=== PATIENT | female | born 1970 | race Caucasian/White ===

== ENCOUNTER 2019-06-12 16:03 | Inpatient (IN) | payer BC, OTHER ==
[2019-06-12] MEDS ORDERED: Flumazenil 0.1 MG/ML 5 ML MDV IVPUSH ONE ×2 (16:36→16:47)
--- NOTE | 2019-06-12 16:36 | EDM.PDOCBH ---
ED HPI GENERAL MEDICAL PROBLEM - General Chief Complaint: Behavioral/Psych Stated Complaint: [facility] Time Seen by Provider: 06/12/19 16:29 - History of Present Illness INITIAL COMMENTS - FREE TEXT/NARRATIVE: 48-year-old female brought in by EMS with decreased level of consciousness. The patient was over a [place], and getting ready for a video conference with the provider and became less responsive the staff over there held her up in the chair until EMS arrived. Upon arriving here she was arousable to the point of saying that she takes Effexor and Xanax. However she required sternal rubbing to get this. We were unable to verify her medications from [place] or find out what pharmacy she gets them from. Treatments ART CLASS MODEL: Reports: Other Medication(s) Other Treatments ART CLASS MODEL: narcan - Related Data Allergies Allergy/AdvReac Type Severity Reaction Status Date / Time fluoxetine HCl [From Prozac] Allergy Agitation Verified 08/20/13 04:59 GAS STATION CLERK meperidine HCl [From Demerol] Allergy Airway Verified 09/02/13 01:56 G[employer] STATION CLERK Tightness Penicillins Allergy Hives Verified 08/20/13 04:58 GAS STATION CLERK varenicline tartrate Allergy Agitation Verified 08/20/13 04:59 GAS STATION CLERK [From Chantix] Home Meds: Home Meds Furosemide 20 mg PO DAILY PRN 08/20/13 [History] Lactulose 20 gm PO TID 08/20/13 [History] Metoclopramide [Reglan] 5 mg PO DAILY 08/20/13 [History] Polyethylene Glycol 3350 [MiraLAX] 17 gm PO DAILY 08/20/13 [History] Acetaminophen/HYDROcodone [HYDROcodone-Acetaminophen 5-500] 5 - 325 mg PO Q6H PRN 09/02/13 [History] Diclofenac Sodium [Voltaren] 75 mg PO BIDM 09/02/13 [History] Misoprostol [Cytotec] 200 mcg PO BID 09/02/13 [History] Omeprazole 20 mg PO BIDAC 09/02/13 [History] Simethicone 160 mg PO TID 09/02/13 [History] Benzocaine/Menthol [Cepacol Sore Throat Lozenge] 1 each PO Q4HR PRN #30 lozenge 09/05/13 [Rx] diphenhydrAMINE [Benadryl] 50 mg PO TID PRN #30 cap 09/05/13 [Rx] fentaNYL [Duragesic] 12.5 mg TD Q72H 09/05/13 [History] guaiFENesin/Dextromethorphan [Mucinex Dm ER 600-30 mg Tablet] 1 each PO BID #14 tab.er.12h 09/05/13 [Rx] predniSONE [Prednisone] 20 mg PO DAILY #2 tablet 09/05/13 [Rx] Past Medical History - Past Health History Medical/Surgical History: Denies Medical/Surgical History Psychiatric History: Reports: Anxiety, Depression Social & Family History - Family History Family Medical History: Unobtainable - Tobacco Use Smoking Status *Q: Unknown Ever Smoked Second Hand Smoke Exposure: No - Living Situation & Occupation Occupation: Employed ED ROS GENERAL - Review of Systems Review Of Systems: See Below Reason Not Obtained: [place] sedated ED EXAM, BEHAVIORAL HEALTH - Physical Exam Exam: See Below Exam Limited By: Other (Decreased level of consciousness however she is maintaining her airway maintaining good saturation on room air her vitals look good her blood pressures a little low but she is not tachycardic) Ears: Normal External Exam, Normal Canal, Hearing Grossly Normal, Normal TMs Nose: Normal Inspection, Normal Mucosa, No Blood Throat/Mouth: Normal Inspection, Normal Lips, Normal Gums, Normal Oropharynx, Normal Voice, No Airway Compromise Head: Atraumatic, Normocephalic Neck: Normal Inspection, Supple. No: Lymphadenopathy (L), Lymphadenopathy (R) Respiratory/Chest: No Respiratory Distress, Lungs Clear, Normal Breath Sounds Cardiovascular: Regular Rate, Rhythm, No Edema, No Murmur GI/Abdominal: Normal Bowel Sounds, Soft Back Exam: Normal Inspection Extremities: Normal Inspection, No Pedal Edema Neurological: Other (she is minimally responsive) COURSE, BEHAVIORAL HEALTH COMP - Course Vital Signs: Last Vital Signs Temp 36.6 C 06/12/19 16:10 Pulse 71 06/12/19 16:10 Resp 12 06/12/19 16:10 BP 86/59 L 06/12/19 16:10 Pulse Ox 94 L 06/12/19 16:10 Orders, Labs, Meds: Active Orders 24 hr Category Date Time Status Sodium Chloride 0.9% [Normal Saline] 1,000 ml Med 06/12/19 16:45 Active IV ASDIRECTED Sodium Chloride 0.9% [Normal Saline] 1,000 ml Med 06/12/19 18:15 Active IV ASDIRECTED Medication Orders Sodium Chloride (Normal Saline) 1,000 mls @ 999 mls/hr IV ASDIRECTED JULIAN Last Admin: 06/12/19 16:45 Dose: 999 mls/hr Sodium Chloride (Normal Saline) 1,000 mls @ 999 mls/hr IV ASDIRECTED JULIAN Last Admin: 06/12/19 18:08 Dose: 999 mls/hr Laboratory Tests 06/12/19 06/12/19 06/12/19 Range/Units 16:50 16:50 16:50 WBC (3.98-10.04) K/mm3 RBC (3.98-5.22) M/mm3 Hgb (11.2-15.7) gm/dl Hct (34.1-44.9) % MCV (79.4-94.8) fl MCH (25.6-32.2) pg MCHC (32.2-35.5) g/dl RDW Std Deviation (36.4-46.3) fL Plt Count (182-369) K/mm3 MPV (9.4-12.3) fl Neutrophils % (Manual) (40-60) % Band Neutrophils % (0-10) % Lymphocytes % (Manual) (20-40) % Atypical Lymphs % % Monocytes % (Manual) (2-10) % Eosinophils % (Manual) (0.7-5.8) % Basophils % (Manual) (0.1-1.2) Platelet Estimate RBC Morph Comment Sodium (136-145) mEq/L Potassium (3.5-5.1) mEq/L Chloride (98-107) mEq/L Carbon Dioxide (21-32) mEq/L Anion Gap (5-15) BUN (7-18) mg/dL Creatinine (0.55-1.02) mg/dL Est Cr Clr Drug Dosing mL/min Estimated GFR (MDRD) (>60) mL/min BUN/Creatinine Ratio (14-18) Glucose (74-106) mg/dL Calcium (8.5-10.1) mg/dL Total Bilirubin (0.2-1.0) mg/dL AST (15-37) U/L ALT (14-59) U/L Alkaline Phosphatase (46-116) U/L Ammonia (11-32) umol/L Total Protein (6.4-8.2) g/dl Albumin (3.4-5.0) g/dl Globulin gm/dL Albumin/Globulin Ratio (1-2) TSH 3rd Generation (0.358-3.74) uIU/mL Urine Color Yellow (Yellow) Urine Appearance Clear (Clear) Urine pH 6.0 (5.0-8.0) Ur Specific [place] > or = 1.030 (1.005-1.030) Urine Protein Negative (Negative) Urine Glucose (UA) Negative (Negative) Urine Ketones Negative (Negative) Urine Occult Blood Negative (Negative) Urine Nitrite Negative (Negative) Urine Bilirubin 1+ H (Negative) Urine Urobilinogen 2.0 H (0.2-1.0) Ur Leukocyte Esterase Negative (Negative) Urine RBC 0-5 (0-5) /hpf Urine WBC 0-5 (0-5) /hpf Ur Squamous Epith Cells 5-10 H (0-5) /hpf Urine Bacteria Few (FEW) /hpf Urine Mucus Few (FEW) /hpf Urine HCG, Qual Negative (NEGATIVE) Salicylates (2.8-20) mg/dL Urine Opiates Screen Negative (VZUCXR=035) Ur Buprenorphine Scrn Negative (CUTOFF=10) Ur Oxycodone Screen Negative (CLE2MG=078) Urine Methadone Screen Negative (XNSILY=219) Ur Propoxyphene Screen Negative (KIQUBS=379) Acetaminophen (10-30) ug/mL Ur Barbiturates Screen Negative (KIVCQE=123) Ur Tricyclics Screen Negative (SMTXCW=416) Ur Phencyclidine Scrn Negative (CUTOFF=25) Ur Amphetamine Screen Negative (CQGLAN=280) U Methamphetamines Scrn Negative (VGXXVG=234) U Benzodiazepines Scrn Presumptive positive H (GKZVXS=105) U Cocaine Metab Screen Negative (BIKXGT=785) U Marijuana (THC) Screen Negative (CUTOFF=50) Ethyl Alcohol (0.00) gm% 06/12/19 06/12/19 06/12/19 Range/Units 18:08 18:08 18:08 WBC 5.17 (3.98-10.04) K/mm3 RBC 3.86 L (3.98-5.22) M/mm3 Hgb 11.4 (11.2-15.7) gm/dl Hct 34.1 (34.1-44.9) % MCV 88.3 (79.4-94.8) fl MCH 29.5 (25.6-32.2) pg MCHC 33.4 (32.2-35.5) g/dl RDW Std Deviation 40.4 (36.4-46.3) fL Plt Count 256 (182-369) K/mm3 MPV 10.1 (9.4-12.3) fl Neutrophils % (Manual) 60 (40-60) % Band Neutrophils % 0 (0-10) % Lymphocytes % (Manual) 35 (20-40) % Atypical Lymphs % 0 % Monocytes % (Manual) 3 (2-10) % Eosinophils % (Manual) 1 (0.7-5.8) % Basophils % (Manual) 1 (0.1-1.2) Platelet Estimate Adequate RBC Morph Comment Normal Sodium 141 (136-145) mEq/L Potassium 3.9 (3.5-5.1) mEq/L Chloride 110 H (98-107) mEq/L Carbon Dioxide 23 (21-32) mEq/L Anion Gap 11.9 (5-15) BUN 8 (7-18) mg/dL Creatinine 0.8 (0.55-1.02) mg/dL Est Cr Clr Drug Dosing 83.63 mL/min Estimated GFR (MDRD) > 60 (>60) mL/min BUN/Creatinine Ratio 10.0 L (14-18) Glucose 93 (74-106) mg/dL Calcium 7.9 L (8.5-10.1) mg/dL Total Bilirubin 0.3 (0.2-1.0) mg/dL AST 9 L (15-37) U/L ALT 14 (14-59) U/L Alkaline Phosphatase 59 (46-116) U/L Ammonia 17 (11-32) umol/L Total Protein 5.8 L (6.4-8.2) g/dl Albumin 3.0 L (3.4-5.0) g/dl Globulin 2.8 gm/dL Albumin/Globulin Ratio 1.1 (1-2) TSH 3rd Generation (0.358-3.74) uIU/mL Urine Color (Yellow) Urine Appearance (Clear) Urine pH (5.0-8.0) Ur Specific [place] (1.005-1.030) Urine Protein (Negative) Urine Glucose (UA) (Negative) Urine Ketones (Negative) Urine Occult Blood (Negative) Urine Nitrite (Negative) Urine Bilirubin (Negative) Urine Urobilinogen (0.2-1.0) Ur Leukocyte Esterase (Negative) Urine RBC (0-5) /hpf Urine WBC (0-5) /hpf Ur Squamous Epith Cells (0-5) /hpf Urine Bacteria (FEW) /hpf Urine Mucus (FEW) /hpf Urine HCG, Qual (NEGATIVE) Salicylates (2.8-20) mg/dL Urine Opiates Screen (KGCZUO=867) Ur Buprenorphine Scrn (CUTOFF=10) Ur Oxycodone Screen (QMR4TT=432) Urine Methadone Screen (QSLYUL=883) Ur Propoxyphene Screen (MXQRCB=344) Acetaminophen (10-30) ug/mL Ur Barbiturates Screen (WZMTTG=752) Ur Tricyclics Screen (YBYGAG=025) Ur Phencyclidine Scrn (CUTOFF=25) Ur Amphetamine Screen (YHKHTI=148) U Methamphetamines Scrn (WWBZLS=710) U Benzodiazepines Scrn (MVAXTY=695) U Cocaine Metab Screen (UQCMCD=194) U Marijuana (THC) Screen (CUTOFF=50) Ethyl Alcohol 0.00 (0.00) gm% 06/12/19 06/12/19 06/12/19 Range/Units 18:08 18:08 18:08 WBC (3.98-10.04) K/mm3 RBC (3.98-5.22) M/mm3 Hgb (11.2-15.7) gm/dl Hct (34.1-44.9) % MCV (79.4-94.8) fl MCH (25.6-32.2) pg MCHC (32.2-35.5) g/dl RDW Std Deviation (36.4-46.3) fL Plt Count (182-369) K/mm3 MPV (9.4-12.3) fl Neutrophils % (Manual) (40-60) % Band Neutrophils % (0-10) % Lymphocytes % (Manual) (20-40) % Atypical Lymphs % % Monocytes % (Manual) (2-10) % Eosinophils % (Manual) (0.7-5.8) % Basophils % (Manual) (0.1-1.2) Platelet Estimate RBC Morph Comment Sodium (136-145) mEq/L Potassium (3.5-5.1) mEq/L Chloride (98-107) mEq/L Carbon Dioxide (21-32) mEq/L Anion Gap (5-15) BUN (7-18) mg/dL Creatinine (0.55-1.02) mg/dL Est Cr Clr Drug Dosing mL/min Estimated GFR (MDRD) (>60) mL/min BUN/Creatinine Ratio (14-18) Glucose (74-106) mg/dL Calcium (8.5-10.1) mg/dL Total Bilirubin (0.2-1.0) mg/dL AST (15-37) U/L ALT (14-59) U/L Alkaline Phosphatase (46-116) U/L Ammonia (11-32) umol/L Total Protein (6.4-8.2) g/dl Albumin (3.4-5.0) g/dl Globulin gm/dL Albumin/Globulin Ratio (1-2) TSH 3rd Generation 1.032 (0.358-3.74) uIU/mL Urine Color (Yellow) Urine Appearance (Clear) Urine pH (5.0-8.0) Ur Specific [place] (1.005-1.030) Urine Protein (Negative) Urine Glucose (UA) (Negative) Urine Ketones (Negative) Urine Occult Blood (Negative) Urine Nitrite (Negative) Urine Bilirubin (Negative) Urine Urobilinogen (0.2-1.0) Ur Leukocyte Esterase (Negative) Urine RBC (0-5) /hpf Urine WBC (0-5) /hpf Ur Squamous Epith Cells (0-5) /hpf Urine Bacteria (FEW) /hpf Urine Mucus (FEW) /hpf Urine HCG, Qual (NEGATIVE) Salicylates 7.4 (2.8-20) mg/dL Urine Opiates Screen (VIUUHL=795) Ur Buprenorphine Scrn (CUTOFF=10) Ur Oxycodone Screen (WKQ3QS=379) Urine Methadone Screen (VQJCXW=405) Ur Propoxyphene Screen (YVCYNB=779) Acetaminophen 0 L (10-30) ug/mL Ur Barbiturates Screen (DYXWYN=519) Ur Tricyclics Screen (YWISOT=141) Ur Phencyclidine Scrn (CUTOFF=25) Ur Amphetamine Screen (LUJTWM=122) U Methamphetamines Scrn (TVZRXW=577) U Benzodiazepines Scrn (IWHXNU=023) U Cocaine Metab Screen (VUYKLD=162) U Marijuana (THC) Screen (CUTOFF=50) Ethyl Alcohol (0.00) gm% Medications Generic Name Dose Route Start Last Admin Trade Name Freq PRN Reason Stop Dose Admin Sodium Chloride 1,000 mls @ 999 mls/hr 06/12/19 16:45 06/12/19 16:45 Normal Saline IV 999 mls/hr ASDIRECTED JULIAN Administration Sodium Chloride 1,000 mls @ 999 mls/hr 06/12/19 18:15 06/12/19 18:08 Normal Saline IV 999 mls/hr ASDIRECTED JULIAN Administration Discontinued Medications Generic Name Dose Route Start Last Admin Trade Name Freq PRN Reason Stop Dose Admin Flumazenil 0.2 mg 06/12/19 16:36 06/12/19 16:44 Romazicon IVPUSH 06/12/19 16:37 0.2 mg ONETIME ONE Administration Flumazenil 0.3 mg 06/12/19 16:47 Romazicon IVPUSH 06/12/19 16:48 ONETIME ONE Re-Assessment/Re-Exam: Labs obtained head CT obtained drug screen positive for benzodiazepines. Head CT unremarkable remaining labs unremarkable. Case was discussed with poison control who figured the benzodiazepines had a short half-life to 3 hours but were more concerned about the Effexor if she took a large dose of this they recommended watching overnight seizure precautions. She's been monitored here in the emergency department with end-tidal CO2 and has done fairly well she is still sedated but responds to loud voices and rubbing.. Case discussed with Dr. Albert who will admit the patient. Departure - Departure Time of Disposition: 20:42 Disposition: Refer to Observation Clinical Impression: Drug overdose - Discharge Information Referrals: PCP,Unknown [Primary Care Provider] - Forms: ED Department Discharge Sepsis Event Note - Evaluation Sepsis Screening Result: No Definite Risk - Focused Exam Vital Signs: Vital Signs Temp Pulse Resp BP Pulse Ox 06/12/19 16:10 36.6 C 71 12 86/59 L 94 L Date Exam was Performed: 06/12/19 Time Exam was Performed: 20:40 - My Orders Last 24 Hours: My Active Orders 06/12/19 16:45 Sodium Chloride 0.9% [Normal Saline] 1,000 ml IV ASDIRECTED 06/12/19 18:15 Sodium Chloride 0.9% [Normal Saline] 1,000 ml IV ASDIRECTED - Assessment/Plan Last 24 Hours: My Active Orders 06/12/19 16:45 Sodium Chloride 0.9% [Normal Saline] 1,000 ml IV ASDIRECTED 06/12/19 18:15 Sodium Chloride 0.9% [Normal Saline] 1,000 ml IV ASDIRECTED
[2019-06-12] MEDS ORDERED: Sodium Chloride 0.9% 1,000 ML IV SCH ×2 (16:45→18:15)
--- NOTE | 2019-06-12 19:01 | CT ---
Head CT Technique: Multiple axial sections through the brain were obtained. Intravenous contrast was not utilized. Comparison: No previous intracranial imaging is available. Findings: Ventricles along with basal cisterns and sulci over the convexities appear within normal limits for the patient's age. No abnormal parenchymal densities are seen. No evidence of intracranial hemorrhage. No midline shift or mass effect is seen. Bone window settings were reviewed which shows no acute calvarial abnormality. Mastoid sinuses appear clear. Mild areas of mucosal thickening are seen within the ethmoid sinuses which is most likely chronic. No acute calvarial finding is seen. Impression: 1. Minimal sinus findings which are believed to be chronic. 2. No acute intracranial abnormality is identified. Diagnostic code #2 This report was dictated in [place] Standard Time
[2019-06-12] MEDS: Lactated Ringers 1,000 ML IV SCH (21:39)
[2019-06-13] MEDS: Lactated Ringers 1,000 ML IV SCH (04:21)
--- NOTE | 2019-06-13 11:52 | PCM.HP.2 ---
H&P History of Present Illness - General Date of Service: 06/12/19 Admit Problem/Dx: Admission Diagnosis/Problem Admission Diagnosis/Problem Drug overdose - History of Present Illness Initial Comments - Free Text/Narative: Information obtained by verbal staff report 48-year-old female brought in by EMS with decreased level of consciousness. Patient was sent over via EMS from [facility] after she was found to be less responsive during a telemedicine appointment. She was given 2 doses of Narcan en route with no improvement. Upon admission to the ED she required sternal rubbing to report she took Effexor and Xanax, unknown amount. - Related Data Allergies/Adverse Reactions: Allergies Allergy/AdvReac Type Severity Reaction Status Date / Time Penicillins Allergy Hives Verified 06/13/19 02:11 fluoxetine HCl [From Prozac] AdvReac Agitation Verified 06/13/19 08:22 varenicline tartrate AdvReac Agitation Verified 06/13/19 08:22 [From Chantix] Home Medications: Home Meds . 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 Cigarettes found in pt's pocket Second Hand Smoke Exposure: No - Caffeine Use Caffeine Use: Reports: None Other Caffeine Use: Pt lethargic and unable to answer questions at this time - Recreational Drug Use Recreational Drug Use: No Other Recreational Drug Type: Pt lethargic and unable to answer questions at this time - Living Situation & Occupation Occupation: Employed H&P Review of Systems - Review of Systems: Review Of Systems: Unable To Obtain Reason Not Obtained: Obtunded Exam - Exam Exam: See Below - Vital Signs Weight: 76.34 kg - Exam Quality Assessment: Supplemental Oxygen General: Obtunded HEENT: Conjunctiva Clear, EACs Clear, Mucosa Moist & [place] Neck: Supple, Trachea Midline, +2 Carotid Pulse wo Bruit. No: Lymphadenopathy Lungs: Clear to Auscultation, Normal Respiratory Effort. No: Crackles, Rales, Rhonchi, Rub, Stridor, Wheezing Cardiovascular: Regular Rate, Regular Rhythm. No: Systolic Murmur, Diastolic Murmur, Rubs, Gallop/S3, Gallop/S4 GI/Abdominal Exam: Normal Bowel Sounds, Soft, No Organomegaly Back Exam: Normal Inspection Extremities: Normal Inspection, No Pedal Edema, Normal Capillary Refill - Patient Data Result Diagrams: 06/12/19 18:08 06/13/19 10:57 Sepsis Event Note - Evaluation Sepsis Screening Result: No Definite Risk Current Stage of Sepsis: Ruled Out Reason for Ruling Out Sepsis: No infection documented or concern for - Problem List (1) Altered mental status SNOMED Code(s): 874414041 ICD Code: R41.82 - ALTERED MENTAL STATUS, UNSPECIFIED Status: Acute Current Visit: Yes (2) Obtundation SNOMED Code(s): 31441009 ICD Code: R40.1 - STUPOR Status: Acute Current Visit: Yes (3) Drug overdose SNOMED Code(s): 69267818 ICD Code: T50.901A - POISONING BY UNSP DRUG/MEDS/BIOL SUBST, ACCIDENTAL, INIT Status: Acute Current Visit: Yes (4) Hypoalbuminemia SNOMED Code(s): 908239581 ICD Code: E88.09 - OTH DISORDERS OF PLASMA-PROTEIN METABOLISM, NEC Status: Acute Current Visit: Yes Problem List Initiated/Reviewed/Updated: Yes Assessment/Plan Comment:: Altered mental status Drug overdose, unknown intention Sent over from [facility] after decreased responsiveness due to Effexor and Xanax No change with naltrexone and flumazenil CT head negative UDS + BDZ Poison control recommending seizure prophylaxis observation overnight Responsive to voice commands in ED but returns to sleep PLAN - Admit to ICU - Continuous monitorization - 1:1 observation - Seizure precautions - F/U with poison control - Repeat labs in AM - Psychiatry consult PROPHYLAXIS DVT- Lovenox GI- Not indicated CODE STATUS: FULL CODE DISPOSITION: Patient will ne admitted to the ICU for close monitorization, psychiatry consult in AM and IVF.
--- NOTE | 2019-06-13 12:16 | PCM.PN ---
- General Info Date of Service: 06/13/19 Subjective Update: No seizures Slept through the night Continues to be difficult to arouse Voiding urine - Patient Data Vitals - Most Recent: Last Vital Signs Temp 97.8 F 06/13/19 10:17 Pulse 66 06/13/19 10:17 Resp 19 06/13/19 10:17 BP 92/57 L 06/13/19 10:17 Pulse Ox 92 L 06/13/19 10:17 Weight - Most Recent: 76.34 kg - Exam General: Oriented, Lethargic HEENT: Pupils Equal, Pupils Reactive, EOMI, Mucous Membr. Moist/[place] Neck: Supple, Trachea Midline, No JVD, No Thyromegaly, +2 Carotid Pulse wo Bruit. No: Lymphadenopathy Lungs: Clear to Auscultation, Normal Respiratory Effort. No: Crackles, Rales, Rhonchi, Rub, Stridor, Wheezing Cardiovascular: Regular Rate, Regular Rhythm, No Murmurs. No: Gallops, Rubs GI/Abdominal Exam: Normal Bowel Sounds, Soft, Non-Tender, No Organomegaly. No: Distended, Guarding, Rigid Extremities: Normal Inspection, No Pedal Edema, Normal Capillary Refill Psy/Mental Status: Labile Mood, Anxious, Depressed, Agitated Sepsis Event Note - Evaluation Sepsis Screening Result: No Definite Risk - Focused Exam Vital Signs: Vital Signs Temp Pulse Resp BP Pulse Ox Pulse Ox 06/13/19 10:17 97.8 F 66 19 92/57 L 92 L 06/13/19 07:58 97.8 F 14 91/64 95 06/13/19 07:49 100 06/13/19 04:00 97.3 F 18 91/53 L 97 Date Exam was Performed: 06/13/19 Time Exam was Performed: 12:10 - Problem List & Annotations (1) Altered mental status SNOMED Code(s): 351824234 Code(s): R41.82 - ALTERED MENTAL STATUS, UNSPECIFIED Status: Acute Current Visit: Yes (2) Obtundation SNOMED Code(s): 26016971 Code(s): R40.1 - STUPOR Status: Acute Current Visit: Yes (3) Drug overdose SNOMED Code(s): 87926878 Code(s): T50.901A - POISONING BY UNSP DRUG/MEDS/BIOL SUBST, ACCIDENTAL, INIT Status: Acute Current Visit: Yes (4) Hypoalbuminemia SNOMED Code(s): 067362072 Code(s): E88.09 - OTH DISORDERS OF PLASMA-PROTEIN METABOLISM, NEC Status: Acute Current Visit: Yes - My Orders Last 24 Hours: My Active Orders 06/12/19 21:23 Code Status [Resuscitation Status] Routine 06/12/19 21:24 Seizure Precautions [OM.PC] Routine 06/13/19 06:22 Bedrest [RC] ASDIRECTED 06/13/19 11:45 Nicotine [Habitrol] 14 mg TRDERM DAILY 06/13/19 11:53 Admission Status [Patient Status] [ADT] Routine 06/13/19 11:55 Suicide Precautions [OM.PC] Routine 06/13/19 Lunch Regular Diet [DIET] 06/14/19 09:00 Remove Patch 0 ea TRDERM DAILY - Plan Plan:: Altered mental status Drug overdose, unknown intention Sent over from [facility] after decreased responsiveness due to Effexor and Xanax No change with naltrexone and flumazenil CT head negative UDS + BDZ Poison control recommending seizure prophylaxis observation overnight Responsive to voice commands in ED but returns to sleep PLAN - Admit to ICU - Continuous monitorization - 1:1 observation - Seizure precautions - F/U with poison control - Repeat labs in AM - Psychiatry consult PROPHYLAXIS DVT- Lovenox GI- Not indicated CODE STATUS: FULL CODE DISPOSITION: Patient will ne admitted to the ICU for close monitorization, psychiatry consult in AM and IVF.
[2019-06-13] MEDS ORDERED: QUEtiapine 25 MG Tab PO STA (12:17)
[2019-06-13] MEDS: Nicotine 14 MG/24 Hr Patch TRDERM SCH ×2 (12:22→18:15)
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
[2019-06-13] MEDS ORDERED: QUEtiapine 25 MG Tab PO ONE (21:00)
[2019-06-14] MEDS ORDERED: Venlafaxine 75 MG Cap.ER PO SCH (09:00)
[2019-06-14] MEDS ORDERED: QUEtiapine 100 MG Tab PO SCH (21:00)
== END 2019-06-13 18:25 | DRG 918 ==
LOC: JD.ED 16:03 → JD.ICU 20:48
PROVIDERS: ADMIT Internal Medicine; ATTEND Internal Medicine
DX: T43.212A Poisoning by selective serotonin and norepinephrine reuptake inhibitors, intentional self-harm, initial encounter (principal); F31.60 Bipolar disorder, current episode mixed, unspecified; F41.9 Anxiety disorder, unspecified; F43.10 Post-traumatic stress disorder, unspecified; F60.2 Antisocial personality disorder; F17.210 Nicotine dependence, cigarettes, uncomplicated; E88.09 Other disorders of plasma-protein metabolism, not elsewhere classified; F29 Unspecified psychosis not due to a substance or known physiological condition; F20.9 Schizophrenia, unspecified; F22 Delusional disorders; G47.00 Insomnia, unspecified; Z79.899 Other long term (current) drug therapy; Z88.0 Allergy status to penicillin; Z88.8 Allergy status to other drugs, medicaments and biological substances; Z98.84 Bariatric surgery status
CPT/HCPCS: 36415; 70450; 70450-26; 80048; 80053; 80306; 81001; 81025; 82140; 83735; 84100; 84443; 85007; 85027; 96361; 96374; 99283; 99285-25; A9270-GY; G0480; J3490; J7030; J7120

== ENCOUNTER 2019-11-26 18:13 | Emergency (ER) | payer OTHER, MEDICAID ==
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
[2019-11-26] MEDS ORDERED: cefTRIAXone 2 GM in Sodium Chloride 0.9% 100 ML IV SCH (18:45)
== END 2019-11-26 20:15 | disposition home or self-care (01) ==
LOC: JD.ED 18:13
DX: S01.512A Laceration without foreign body of oral cavity, initial encounter (principal); L02.01 Cutaneous abscess of face; V89.2XXA Person injured in unspecified motor-vehicle accident, traffic, initial encounter
CPT/HCPCS: 96365; 99283; J0696; J7050

== ENCOUNTER 2024-03-04 14:28 | Emergency (ER) | payer MEDICAID ==
[2024-03-04 15:03] LABS: BASOPHILS PERCENT AUTO 0.2 % (0.0-1.0); EOSINOPHILS PERCENT AUTO 0.3 % (0.0-6.0); HEMATOCRIT 39.6 % (37.0-47.0); HEMOGLOBIN 13.5 gm/dl (12.0-16.0); IMMATURE GRAN ABSOLUTE AUTO 0.01 K/mm3 (0.00-0.05); IMMATURE GRAN PERCENT AUTO 0.2 % (0.0-0.4); LYMPHOCYTES ABSOLUTE AUTO 1.9 K/mm3 (1.0-4.8); LYMPHOCYTES PERCENT AUTO 31.2 % (24.0-44.0); MEAN CORPUSCULAR HEMOGLOBIN 29.9 pg (28.0-32.0); MEAN CORPUSCULAR HGB CONC 34.1 g/dl (32.0-36.0); MEAN CORPUSCULAR VOLUME 87.6 fl (83.0-99.0); MEAN PLATELET VOLUME 9.7 fl (9.4-12.3); MONOCYTES ABSOLUTE AUTO 0.4 K/mm3 (0.0-0.8); MONOCYTES PERCENT AUTO 5.9 % (0.0-8.0); NEUTROPHILS ABSOLUTE AUTO 3.8 K/mm3 (1.8-7.7); NEUTROPHILS PERCENT AUTO 62.2 % (41.0-71.0); PLATELET COUNT,PLT 316 K/mm3 (150-400); RED BLOOD CELL COUNT 4.52 M/mm3 (4.10-5.30); WHITE BLOOD CELL COUNT,WBC 6.06 K/mm3 (3.9-11.3)
[2024-03-04] MEDS: Iopamidol 755 Mg/ML 100 ML Bottle IVPUSH ONE (15:04)
[2024-03-04] MEDS: Sodium Chloride 0.9% 10 ML Syringe FLUSH ONE (15:04)
[2024-03-04] MEDS: Sodium Chloride 0.9% 100 ML IV SCH (15:04)
[2024-03-04 15:10] LABS: INR 1.03; PROTHROMBIN TIME 10.9 SECONDS (9.7-12.0)
[2024-03-04 15:11] LABS: PTT,PARTIAL THROMBOPLSTIN TIME 26.8 SECONDS (21.7-31.4)
[2024-03-04 15:16] LABS: A/G RATIO 1.2 (1-2); ALANINE AMINOTRANSFERASE,ALT 25 U/L (14-59); ALBUMIN 3.9 g/dl (3.4-5.0); ALKALINE PHOSPHATASE 70 U/L (46-116); ANION GAP 16.9 (5-15); ASPARTATE AMNIOTRANSFERASE,AST 22 U/L (15-37); BILIRUBIN TOTAL 0.9 mg/dL (0.2-1.0); BLOOD UREA NITROGEN,BUN 12 mg/dL (7-18); BUN/CREATININE RATIO 10.9 (14-18); CALCIUM 9.4 mg/dL (8.5-10.1); CARBON DIOXIDE,CO2 22 mEq/L (21-32); CHLORIDE,CL 104 mEq/L (98-107); CREATININE 1.1 mg/dL (0.55-1.02); EST CRCL DRUG DOSING (CG) 53.22 mL/min; ESTIMATED GFR 60 mL/min (>60); GLUCOSE RANDOM 97 mg/dL (70-99); POTASSIUM,K 3.9 mEq/L (3.5-5.1); PROTEIN TOTAL,TP 7.1 g/dl (6.4-8.2); SODIUM,NA 139 mEq/L (136-145)
[2024-03-04 15:17] LABS: TROPONIN I HIGH SENSITIVITY < 4 pg/mL (<=51)
[2024-03-04 16:15] LABS: BARBITURATE SCREEN,URINE NEGATIVE (CUTOFF=200); BENZODIAZEPINES SCREEN,URINE NEGATIVE (CUTOFF=150); BUPRENORPHINE SCREEN,URINE NEGATIVE (CUTOFF=10); METHADONE SCREEN, URINE NEGATIVE (CUTOFF=200); METHAMPHETAMINES SCREEN, URINE NEGATIVE (CUTOFF=500); OXYCODONE SCREEN,URINE NEGATIVE (CUT0FF=100); THC SCREEN,URINE 20 NG/ML NEGATIVE (CUTOFF=50)
[2024-03-04 16:22] LABS: AMPHETAMINES SCREEN, URINE NEGATIVE (CUTOFF=500)
== END 2024-03-05 00:15 | disposition home or self-care (01) ==
LOC: SUPCPDRO 14:28 → JD.ED 14:28
DX: R44.0 Auditory hallucinations (principal); R41.82 Altered mental status, unspecified; F43.10 Post-traumatic stress disorder, unspecified; F17.210 Nicotine dependence, cigarettes, uncomplicated; Z90.49 Acquired absence of other specified parts of digestive tract; Z88.8 Allergy status to other drugs, medicaments and biological substances
CPT/HCPCS: 36415; 70450; 70496; 70498; 80053; 80306; 80307; 84484; 85025; 85610; 85730; 93005; 99285; J3490; Q9967; 93010; 99284